=== PATIENT | male | born 1980 | race African-American/Black ===

== ENCOUNTER 2017-01-24 01:48 | Inpatient (IN) | payer OTHER ==
--- NOTE | ~2017-01-24 | CO ---
Unit #: [id number] #: [id number] Patient: CONI SOLO [id number] [address] [place], [place] [address] [id number] I MR#: [id number] NAME: CONI SOLO ROOM: 217 Age: 36 Sex: M Admission Date: 01/24/2017 : 1980 Attending Physician: Gracie Merchant M.D. Primary Care Physician: Primary Care Physician No Consultation Date: 01/24/2017 CONSULTATION REPORT JOB NOTE: CC: DR. MERCHANT. REASON FOR CONSULTATION 1. Partial small bowel obstruction. 2. Pelvic mass. Thank you very much for asking us to see Mr. Solo. HISTORY OF PRESENT ILLNESS He is a 36-year-old black male. He has no previous surgical history or major medical problems. He states he was well until 3 to 5 days ago when he developed epigastric and lower abdominal pain with some nausea. He states that he developed diarrhea after this. He then developed some maroon-colored stools. He came into the emergency room for evaluation. In the emergency room, he has had a CT scan performed, which revealed thickening of the distal ileum with an adjacent 3 to 4 cm pelvic mass. He also had multiple liver lesions and lytic lesion to the pelvic bones are suspicious for metastatic disease. He was admitted for further evaluation and treatment. He states he may have lost a small amount of weight, but not very much. He denies any previous GI bleeding. He denies any or pulmonary symptoms. PAST MEDICAL HISTORY Unremarkable. HOME MEDICATIONS None. SOCIAL HISTORY Positive for tobacco. No alcohol use. FAMILY HISTORY Noncontributory. PAST SURGICAL HISTORY None. REVIEW OF SYSTEMS Negative except for above. IMMUNIZATION STATUS Unknown. PHYSICAL EXAMINATION GENERAL: Well-developed, well-nourished, black male, in no apparent Unit #: [id number] #: [id number] Patient: CONI SOLO distress. VITAL SIGNS: Afebrile, vital signs stable. NECK: Supple. No thyromegaly or adenopathy. BACK: No CVA or spinous tenderness. NECK: Sclerae not icteric. Extraocular movements are intact. ABDOMEN: The patient's abdomen is tender in the epigastric area and lower abdomen with some guarding. It is nondistended. There is no rebound, peritoneal signs, or masses palpable. EXTREMITIES: No calf tenderness. No erythema. DIAGNOSTIC STUDIES LABORATORY RESULTS: Revealed the patient to have normal liver function studies and normal electrolytes. His alkaline phosphatase is slightly elevated at 211. His PT and PTT are normal. His white count is 8.5, hemoglobin 13.3, hematocrit 41.1, MCV is slightly low at 75.5, platelets 272. The patient's CEA level is pending at this time. IMPRESSION A 36-year-old black male with mucosal thickening of the terminal ileum, some degree of partial small bowel obstruction, but currently has no nausea or vomiting and adjacent mass, multiple liver lesions and lytic lesions in the pelvis. It was suspicious for lymphoma per the radiologist. He has been seen by Hematology/Oncology who has recommended a biopsy of one of his liver lesions. We have explained to the patient all of the above imaging findings. We have explained that he may need operative intervention. We will follow the patient with you. At this point in time, since he does not have nausea or vomiting, we will hold on a nasogastric tube. If he develops any nausea or vomiting, he may need that placed. All of these have been fully explained to the patient. Dictated by... Delon Holley/anuja TD: 01/25/2017 03:33 JOB #: [id number] CC: Leland Thomas M.D. [facility] CONSULTATION REPORT Page 1 of 1 X Sean Swan MD X CONSULTATION REPORT
--- NOTE | ~2017-01-24 | CT55 ---
[facility] A Service of [facility] RADIOLOGY TEXT RESULTS PATIENT: CONI PRETTY LOCATION: [facility] : 76 UNIT #: [id number] AGE: [address]: Gracie Merchant MD SEX: M ORDER DR: [id number] [place] [address] [facility]. [place], [place] [address] [id number] I MR#: [id number] Acc #: [id number] NAME: CONI PRETTY : 1980 SEX: M STUDY DATE/TIME: 01/24/2017 13:16 UNIT: C2A ROOM: 217 STUDY DESCRIPTION: CT Chest W Con Attending Physician: Gracie Merchant M.D. Ordering Physician: Leland Thomas M.D. Primary Care Physician: No Primary Care Physician MEDICAL IMAGING REPORT This report is preliminary unless electronic signature is present EXAM CT chest. INDICATION Lymphadenopathy. Liver mass. Observation for metastatic disease. TECHNIQUE CT of the chest utilizing 70 mL Isovue-370 IV contrast. Coronal and sagittal reconstructions were obtained. This CT exam was performed with one or more of the following radiation dose reduction techniques: automatic exposure control, adjustment of mA and/or kV according to patient size, and iterative reconstruction. COMPARISON CT abdomen and pelvis dated 01/24/2017. FINDINGS No pathologically enlarged mediastinal or hilar lymph nodes. No axillary lymphadenopathy. There is a borderline enlarged right axillary lymph node measuring 1.0 cm on the left and on the right. There is background emphysema. Lungs are hyperinflated suggesting a component of obstructive lung disease. Central airways are patent. No focal consolidation. No acute osseous abnormalities are identified. IMPRESSION Borderline enlargement of supraclavicular lymph nodes, otherwise, no evidence of metastatic disease in the chest. These lymph nodes can be followed. [facility] A Service [facility] RADIOLOGY TEXT RESULTS PATIENT: CONI PRETTY LOCATION: [facility] : [birth year] UNIT #: [id number] AGE: [address]: Gracie Merchant MD SEX: M ORDER DR: Dictated by... Harshad Sheets M.D. THIS IS AN ELECTRONICALLY VERIFIED REPORT Harshad Sheets M.D. at 01/24/2017 5:00 PM RPTyrone/mery TD: 01/24/2017 16:04 JOB #: [id number] MEDICAL IMAGING REPORT Page 1 of 1 COPY
--- NOTE | ~2017-01-24 | CT2 ---
[facility] A Service of [facility] RADIOLOGY TEXT RESULTS PATIENT: CONI PRETTY LOCATION: C2A 217-01 : [birth year] UNIT #: [id number] AGE: [address]: Gracie Merchant MD SEX: M ORDER DR: [id number] [facility] [address] [facility]. [place], [place] [address] [id number] I MR#: [id number] Acc #: [id number] NAME: CONI PRETTY : 1980 SEX: M STUDY DATE/TIME: 01/24/2017 5:26 UNIT: C2A ROOM: 217 STUDY DESCRIPTION: CT Abd and Pelv W Cont Attending Physician: Gracie Merchant M.D. Ordering Physician: Iveth Loaiza A.P.R.N. Primary Care Physician: No Primary Care Physician MEDICAL IMAGING REPORT This report is preliminary unless electronic signature is present EXAM Abdomen and pelvis CT with contrast. HISTORY Generalized diffuse abdominal pain with blood in the stool for the past 2 days. TECHNIQUE Axial images were obtained with intravenous contrast. 100 mL of Isovue was used. This CT exam was performed with one or more of the following radiation dose reduction techniques: automatic exposure control, adjustment of mA and/or kV according to patient size, and iterative reconstruction. FINDINGS Distended small bowel loops are seen consistent with a mechanical obstruction. There is a segment of bowel, probably distal ileum, in the right lower quadrant that appears thickened with abnormal enhancement and there is an ill-defined low density mass with rim enhancement in the mid pelvis, just above the bladder measuring approximately 3-4 cm in diameter. Bilateral inguinal lymph nodes are seen that are abnormally prominent. There is a dominant mesenteric lymph node measuring 17 x 23 mm and there are smaller lymph nodes in the mesentery that are also abnormal. Retroperitoneal adenopathy is seen and there are multiple subtle low-density lesions seen throughout the liver. Finding suspicious for a GI malignancy with metastatic disease to the liver. There is also a soft tissue nodule in subcutaneous fat in the right posterolateral pelvis measuring approximately 1 x 1.5 cm. In addition to the soft tissue lesions, there are multiple low-density lytic lesions seen in the iliac bones suspicious for skeletal metastasis. No definite metastatic lesions are seen in the lumbar vertebrae. [facility] A Service of [facility] RADIOLOGY TEXT RESULTS PATIENT: CONI PRETTY LOCATION: [facility] 217-01 : [birth year] UNIT #: [id number] AGE: [address]: Gracie Merchant MD SEX: M ORDER DR: IMPRESSION Marked mucosal thickening of the terminal ileum with an adjacent ill-defined pelvic mass measuring about 3-4 cm in diameter. This is accompanied by widespread adenopathy as described above, as well as low density lesions throughout the liver and lytic lesions in the pelvic bones. Finding suspicious for a GI malignancy with widespread metastatic disease. Lymphoma should also be considered in the differential diagnosis. Distended small bowel loops are seen proximal to the terminal ileum compatible with a mechanical obstruction. Dictated by... Damián Rivas M.D. THIS IS AN ELECTRONICALLY VERIFIED REPORT Daimán Rivas M.D. at 01/25/2017 10:29 AM NICHELLE/mery TD: 01/24/2017 09:30 JOB #: [id number] MEDICAL IMAGING REPORT Page 1 of 1 COPY
--- NOTE | ~2017-01-24 | OR ---
Unit #: [id number] #: [id number] Patient: CONI PRETTY [id number] [address] [address] [id number] I MR#: [id number] NAME: CONI PRETTY ROOM: 474 Date of Procedure: 01/25/2017 Admission Date: 01/24/2017 Surgeon: Sean Swan M.D. : 1980 Attending Physician: Gracie Merchant M.D. OPERATIVE REPORT PREOPERATIVE DIAGNOSES 1. Rectal bleeding. 2. Abdominal pain. 3. Abnormal CT scan. POSTOPERATIVE DIAGNOSES 1. Rectal bleeding. 2. Abdominal pain. 3. Abnormal CT scan. PROCEDURES PERFORMED 1. Esophagogastroduodenoscopy. 2. Biopsy of antrum for Helicobacter pylori testing. 3. Colonoscopy to terminal ileum. 4. Multiple biopsies of cecal neoplasm and abnormal mucosa of terminal ileum. ANESTHESIA Monitored anesthesia care. FINDINGS The patient had normal upper endoscopy. On colonoscopy, the patient was found to have neoplasm at the entrance of the cecum as well as some mucosal abnormality of the terminal ileum. SPECIMENS Sent to pathology. COMPLICATIONS None apparent. CONDITION The patient tolerated the procedure well. INDICATIONS FOR PROCEDURE The patient is a 36-year-old black male, who presented to the emergency room with rectal bleeding. He had abdominal pain as well. A CT scan revealed thickening of the terminal ileum and adjacent 3 to 4 cm neoplasm as well as evidence of metastatic disease of the liver, enlarged nodes in the abdomen and lytic lesions of the pelvic bones. He presents at this time for evaluation by upper as well as lower endoscopy. Unit #: [id number] #: [id number] Patient: CONI PRETTY DESCRIPTION OF PROCEDURE After obtaining informed consent, the patient was brought to the endoscopy suite and after adequate monitored anesthesia care, had the endoscope placed through the mouth into the upper esophagus under direct vision. It was advanced to the second portion of the duodenum without difficulty with the lumen always in view. The duodenum was normal as was the duodenal bulb. The pylorus opened normally. There was some mild distal gastritis present and a biopsy was obtained for Helicobacter pylori testing. On retroflexion back to the GE junction, the patient was found to have no abnormalities in the proximal third, middle third, or incisura. On pulling back above the GE junction, there was no stenosis, stricture, or neoplasm seen. The remaining portion of the esophagus was within normal limits. Laryngeal structures were grossly normal as viewed from above. At this point in time, the colonoscope was placed through the anus and slowly advanced to the level of the cecum without difficulty with the lumen always in view. At the entrance of the cecum, there was a neoplasm present, though we were able to pass through into the terminal ileum. The terminal ileum initially at its most distal aspect had a normal-appearing mucosa, but a little farther upstream, there was mucosal abnormality seen. Multiple biopsies were obtained. On pulling back through the ileocecal valve into the area of the entrance of the cecum, there was a large neoplasm present. Multiple biopsies were obtained. There was good hemostasis. On pulling back from this area, the ascending colon was normal as was the hepatic flexure, transverse colon, splenic flexure, descending colon, sigmoid colon, and rectum. On retroflexing in the rectum to the anorectal junction, the patient was found to have no abnormality seen. The scope was removed without difficulty. The patient tolerated the procedure well and went from the endoscopy suite to the recovery area in stable condition. RECOMMENDATIONS Clear liquid diet after awake. We discussed all with Dr. Thomas of Oncology and he will speak with the patient later regarding the treatment plan. Dictated by... Delon Holley/anuja TD: 01/26/2017 05:35 JOB #: [id number] [facility] Leland Thomas M.D. OPERATIVE REPORT Page 1 of 1 X Sean Swan MD X PROCEDURE OPERATIVE NOTE
--- NOTE | ~2017-01-24 | DS ---
Unit #: [id number] #: [id number] Patient: CONI PRETTY [id number] [facility] [address] [facility]. [place], [place] [address] [id number] I MR#: [id number] NAME: CONI PRETTY ROOM: 474 Age: 36 Sex: M Admission Date: 01/24/2017 : 1980 Discharge Date: Attending Physician: Gracie Merchant M.D. Primary Care Physician: No Primary Care Physician DISCHARGE SUMMARY DIAGNOSIS ON ADMISSION Abdominal pain, pelvic mass with metastatic disease. 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 CONSULTATION 1. Dr. Thomas - Oncology consultation. 2. Dr. Swan - Surgical consultation. LABS AND PROCEDURES DONE The patient had full colonoscopy done which revealed a cecal mass and with mucosal abnormality of terminal ileum. The patient's creatinine is 0.8, sodium 135, potassium is 4.2. WBC is 9.3, hemoglobin is 10.9, platelet count is 243. Blood culture did not reveal any growth so far. CT scan of abdomen and pelvis revealed marked mucosal thickening of terminal ileum with an adjacent ill-defined pelvic mass measuring 3-4 cm and with liver lesions and pelvic bone lesions. CT scan of chest revealed borderline enlargement of supraclavicular lymph nodes, otherwise no evidence of metastatic disease. HOSPITAL COURSE 36-year-old male was admitted to [facility] with abdominal pain. Details are as per admission H and P. The patient was seen by oncology in consultation. The patient underwent a colonoscopy with findings as above. The patient's biopsy is pending. Discussed with Dr. Thomas who believed that patient could have large cell lymphoma. He has advised that patient can be discharged home and follow with him on an outpatient basis next week to discuss the results of biopsy and further management. Today, patient is comfortable. MEDICATIONS Medications on discharge: 1. Duragesic patch 12 mcg topically q.72 hours. Unit #: [id number] #: [id number] Patient: CONI PRETTY 2. Dilaudid 4 mg p.o. q.6 hours p.r.n. Both prescriptions were written by Dr. Thomas. FOLLOWUP The patient is advised to follow up with Dr. Thomas as recommended. The patient was encouraged to quit smoking. The plan was discussed in detail with patient who showed complete understanding. The plan was also discussed with Dr. Thomas. The patient seems in good spirits today. Dictated by... Delon Erwin TD: 01/26/2017 11:35 JOB #: [id number] DISCHARGE SUMMARY Page 1 of 1 X Gracie Merchant MD X DISCHARGE SUMMARY
--- NOTE | ~2017-01-24 | HP ---
Unit #: [id number] #: [id number] Patient: CONI PRETTY [id number] [facility] [address]. [place], [place] [address] [id number] I MR#: [id number] NAME: CONI PRETTY ROOM: 78229 Age: 36 Sex: M Admission Date: 01/24/2017 : 1980 Attending Physician: Gracie Merchant M.D. Primary Care Physician: No Primary Care Physician HISTORY AND PHYSICAL HISTORY OF PRESENT ILLNESS A 36-year-old male presented to [facility] with rectal bleeding. As per patient, he was in usual state of health when around five days ago he developed some lower abdominal pain which was associated with nausea and vomiting. The patient stated that the pain was sharp, nonradiating, [id number], and relieved with medication. Patient stated last night he passed some blood in his stools and therefore, he came to the emergency room. In the emergency room, patient had a CT scan of abdomen done which revealed extensive disease there. The patient had distal ileum thickening and had some spread of some liver lesions and pelvic bone lesions. Therefore, it was decided to admit patient in the hospital. Patient states that he has lost some weight over last couple of years but he is not specific about that. He denies any loss of appetite. There is no history of chest pain, tightness, heaviness. There is no history of headache or visual problems. There is no history of blood in urine. Patient states that overall he is in great health. Rest of the review of systems is negative. PAST MEDICAL HISTORY None. HOME MEDICATIONS None, as per patient. SOCIAL HISTORY Patient smokes one pack of cigarettes for past many years. He denies drinking. FAMILY HISTORY Patient denies any family history of cancer. PAST SURGICAL HISTORY None. PHYSICAL EXAMINATION GENERAL: Patient was lying comfortably in bed, not in any obvious acute distress. VITAL SIGNS: Reveal temperature of 98.2, pulse 75 per minute, respiratory rate is 18 per minute, blood pressure is 115/75. HEENT: Revealed no conjunctival congestion. Sclerae is nonicteric. NECK: Supple. Trachea is central. RESPIRATORY: Revealed decreased breath sounds bilaterally. There are no wheezes or crackles. HEART: Regular rate and rhythm. S1, S2. Unit #: [id number] #: [id number] Patient: CONI PRETTY ABDOMEN: Soft. There is slight mid abdominal tenderness present. No rebound tenderness, rigidity, or guarding. The patient has just received pain medicine. NEUROLOGIC: Strength is 5/5 bilaterally. PSYCHIATRIC: The patient is alert to person, place, and time. SKIN: Warm and dry. DIAGNOSTIC STUDIES LABORATORY: Patient's creatinine is 1, sodium 136, potassium 3.7. AST and ALT are within normal limits. Lipase was 17. WBC 8.5, hemoglobin 13.3, platelet count 272,000. Urinalysis revealed 25-50 RBCs. IMAGING: Patient had CT scan of abdomen and pelvis done which revealed marked mucosal thickening of terminal ileum and with a mass around 3 to 4 cm and with widespread low densities lesions in liver and bone lytic lesions in pelvic bones. The distal bowel loops were dilated as per preliminary report. ASSESSMENT AND PLAN A 36-year-old male with no past medical history, but presented with abdominal pain. 1. Pelvic mass with probable metastatic lesions in liver and pelvic bones. I have requested oncology to see patient in consultation. I have started patient on morphine for pain. 2. Dilated small bowel loops and pelvic mass. I have also consulted surgical surgery. 3. We will give patient gastrointestinal prophylaxis. 4. Tobacco abuse: The patient was encouraged to quit smoking. The plan was discussed in detail with patient and family and they showed complete understanding. Dictated by Delon Erwin TD: 01/24/2017 09:20 JOB #: [id number] HISTORY AND PHYSICAL Page 1 of 1 X Gracie Merchant MD X HISTORY AND PHYSICAL
--- NOTE | ~2017-01-24 | XA231 ---
[facility] A Service of [facility] RADIOLOGY TEXT RESULTS PATIENT: CONI SOLO LOCATION: C2A 217-01 : [birth year] UNIT #: [id number] AGE: [address]: Gracie Merchant MD SEX: M ORDER DR: [id number] [address] [address] [id number] I MR#: [id number] Acc #: [id number] NAME: CONI SOLO : 1980 SEX: M STUDY DATE/TIME: 01/24/2017 13:49 UNIT: C2A ROOM: [facility] STUDY DESCRIPTION: XA Consult Attending Physician: Gracie Merchant M.D. Ordering Physician: Leland Thomas M.D. Primary Care Physician: No Primary Care Physician MEDICAL IMAGING REPORT This report is preliminary unless electronic signature is present CONSULT EXAM Ultrasound of the right gluteal region. INDICATION Mr. Solo is a 36-year man who was admitted to the hospital on January 24, 2017, with complaints of abdominal pain. He appeared to have a colonic mass as well as evidence of metastatic disease to the bones and, potentially, also to the liver. Biopsy of the liver lesions was requested; however, they were extremely difficult to see, due to small size and timing of the contrast bolus. He also underwent a CT scan of the chest that did not show any further potential targets for biopsy. TECHNIQUE Risks, benefits, and alternatives to the procedure were explained to the patient, and signed, informed consent was obtained. Initially, ultrasound of the right gluteal region was performed and demonstrated small hypoechoic nodule that was felt to be indeterminate and of limited utility for biopsy. Subsequently, I performed an ultrasound of the liver and did not see any of the lesions previously identified on the abdominal or chest CT. I did suggest a potential biopsy of the patient's right iliac bone, but after discussion with Dr. Thomas and the patient, this does not proceed. The procedure was subsequently terminated. IMPRESSION 1. The patient's potential liver lesions are extremely difficult to see with both CT and ultrasound. 2. The patient does have a hypoechoic lesion, which is indeterminate, seen in the right gluteal region, but it is felt to be a poor target for biopsy. [facility] A Service of [facility] & [facility] RADIOLOGY TEXT RESULTS PATIENT: CONI SOLO LOCATION: [facility] 217-01 : [birth year] UNIT #: [id number] AGE: [address]: Gracie Merchant MD SEX: M ORDER DR: Dictated by... Arin Biswas M.D. THIS IS AN ELECTRONICALLY VERIFIED REPORT Arin Biswas M.D. at 01/25/2017 4:41 PM MARILIN/henny TD: 01/25/2017 11:14 JOB #: [id number] MEDICAL IMAGING REPORT Page 1 of 1 COPY
--- NOTE | ~2017-01-24 | CO ---
Unit #: [id number] #: [id number] Patient: RAZ SOLO [id number] [address] [place], [place] [address] [id number] MR#: [id number] NAME: RAZ SOLO ROOM: 217 Age: 36 Sex: M Admission Date: 01/24/2017 : 1980 Attending Physician: Gracie Merchant M.D. Consultation Date: 01/24/2017 CONSULTATION REPORT REASON FOR CONSULTATION Liver lesions and bone lesions suggestive of a GI malignancy. HISTORY Mr. Raz Solo is a 36-year-old with no significant past medical history, who over the past week has been having severe pain in his right lower quadrant of the abdomen, which worsened to a point where he presented to the emergency room yesterday and has since been admitted. He has also noticed loose stools with old blood in the last two days. On admission, CT scan of the abdomen and pelvis shows a mass in the ileocecal region with retroperitoneal lymphadenopathy, liver lesions and bone lesions all concerning for malignancy. He tells me had a watery bowel movement earlier today with some dark blood. He has had some nausea, but no vomiting. The abdominal pain has been severe. He has had some other episodes with mild discomfort and a tendency in the past year to have a bowel movement as soon as he has a meal. He has lost weight, but no significant weight loss in the last 3-6 months. However, over the past five years or so, he has lost about 100 pounds in weight. He has had some fever at home with temperature of 101 and chills with sweats. No cough with expectoration, dysuria or urinary frequency. PAST MEDICAL HISTORY History of an ankle ulcer requiring debridement in the past. PAST SURGICAL HISTORY Foot debridement, but no other significant surgery. FAMILY HISTORY No history of cancer or polyps. His grandmother did have breast cancer in her 80s. SOCIAL HISTORY Smokes a pack and a half a day. Occasionally smokes marijuana. He is and lives with and has two children aged 13 and 18. REVIEW OF SYSTEMS Fourteen point review of systems was taken: CONSTITUTIONAL: As discussed. EYES: Negative. EARS, NOSE, MOUTH, AND THROAT: Negative. CARDIOVASCULAR: No chest pain or palpitation. RESPIRATORY: Negative. GASTROINTESTINAL: As discussed. Unit #: [id number] #: [id number] Patient: RAZ SOLO GENITOURINARY: Negative. NEUROLOGIC: Negative. ALLERGIC AND LYMPHATIC: Negative. SKIN: Negative. PSYCHIATRIC: Negative. LYMPHATIC: Negative. PHYSICAL EXAMINATION GENERAL: This is a pleasant middle-aged man, who is in moderate distress. VITAL SIGNS: Temperature is 98.6, pulse is 71, respirations 18, blood pressure 130/73 and weight 177 pounds. HEENT: His pupils are equal and reactive well to light. No pallor or icterus. Mucous membranes are moist. NECK: Without adenopathy, JVD, or thyromegaly. CARDIOVASCULAR: First and second heart sounds are heard and regular. There are no murmurs, gallops or rubs. LUNGS: Chest expansion is symmetric bilaterally with normal breath sounds. ABDOMEN: Tender, nondistended. Bowel sounds are present. No definite masses felt. EXTREMITIES: Warm with good pulses. No edema, cyanosis or clubbing. NEUROLOGIC: He is awake, alert and oriented x3 without any focal findings. SKIN: Negative. LYMPHATIC: Negative. DIAGNOSTIC STUDIES LABORATORY RESULTS: White count is 8.5, hemoglobin is 13.3, MCV 75.5, platelet count is 272,000. Basic metabolic panel shows a BUN of 15, creatinine is 1. LFTs show an albumin of 3.4, alkaline phosphatase is 211. Pro-time is 11.7, INR 1.1, PTT is 29.5. DIAGNOSTIC RESULTS: CT scan of the abdomen and pelvis was personally reviewed by me and findings were discussed with the patient. There was an ill-defined low-density mass in the ileocecal area with mesenteric lymphadenopathy as well as multiple subtle low attenuation lesions in the liver as well as multiple low density lytic lesions in the iliac bones. ASSESSMENT/PLANS Mr. Jon Solo is a 36-year-old with a history of iron deficient anemia and a foot abscesses admitted with severe abdominal pain and rectal bleeding along with a history of diarrhea. CT scan of the abdomen and pelvis is concerning for a GI malignancy with an ileocecal mass, retroperitoneal lymphadenopathy and multiple lesions in the liver and iliac bone concerning for metastatic malignancy. I had an extensive discussion with the patient and family members at bedside. He may have a partial small bowel obstruction and [facility] have been consulted. RECOMMENDATIONS 1. CEA level. 2. CT-guided liver biopsy. Plans discussed with Dr. Biswas of Radiology. 3. Blood cultures in view of fever, although his white count is normal. Thank you for allowing me to participate in his care. Dictated by... Unit #: [id number] #: [id number] Patient: RAZ SOLO Delon Andrade/anuja TD: 01/25/2017 05:22 JOB #: [id number] CONSULTATION REPORT Page 1 of 1 X Leland Thomas MD X CONSULTATION REPORT
[~2017-01-24 01:48] MED LIST: ACETAMINOPHEN PO; ALAVERT10 MG PO; BACTRIM DS TABL1 TA1 PO; BACTROBAN15 GM TOP; COLACE PO; DICLOFENAC PO; FERRO-TIME325 MG PO; LORTAB 5/500 TA1 TA1 PO; MAGIC MOUTHWASH; MILK OF MAGNESIA PO; NILSTAT PO; NO MEDICATIONS; SPECTAZOLE15 GM TP; VICODIN PO; ZOVIRAX PO; ZOVIRAX400 MG PO
[2017-01-24 02:34] LABS: BASOPHIL# 0.1 X10e3 (0-0.3); BASOPHIL% 0.6 % (0-2.5); DIFF IND NO; EOSINOPHIL# 0.1 X10e3 (0-0.7); HEMATOCRIT 41.1 % (38.0-50.0); HEMOGLOBIN 13.3 gm/dL (13.0-16.0); LYMPHOCYTE# 2.6 X10e3 (1.0-3.5); LYMPHOCYTE% 30.3 % (17.0-45.0); MEAN CELL VOLUME 75.5 FL (83-96); MEAN CORPUSCULAR HEMOGLOBIN 24.5 PG (28-34); MEAN CORPUSCULAR HGB CONC 32.4 g/dL (30-36); MEAN PLATELET VOLUME 8.7 FL (6.5-11.5); MONOCYTE# 0.7 X10e3 (0-1.0); MONOCYTE% 7.7 % (3.0-12.0); NEUTROPHIL# 5.1 X10e3 (1.5-7.1); NEUTROPHIL% 60.4 % (40-75); PLATELET COUNT 272 X10e3 (140-420); RED BLOOD COUNT 5.45 X10e (3.90-5.60); RED CELL DISTRIBUTION WIDTH 15.2 % (11.0-15.5); WHITE BLOOD COUNT 8.5 X10e3 (4.0-10.5)
[2017-01-24 02:58] LABS: ALBUMIN SERUM 3.4 g/dL (3.5-5.0); BILIRUBIN, DIRECT 0.1 mg/dL (0.0-0.2); BILIRUBIN,INDIRECT 0.5 mg/dL (0.0-0.9); BILIRUBIN,TOTAL 0.6 mg/dL (0.2-2.0); CALCIUM SERUM 9.2 mg/dL (8.4-10.2); GLOM FILT RATE Estimated 110.2 mL/min (>60); POTASSIUM 3.7 mmol/L (3.5-5.1); PROTEIN TOTAL SERUM 9.4 g/dL (6.0-8.3)
[2017-01-24 03:28] LABS: URINE SOURCE CLEAN CATCH
[2017-01-24 03:34] LABS: URINE APPEARANCE CLEAR; URINE BILIRUBIN NEG (NEG); URINE BLOOD 2+ (NEG); URINE COLOR DK YELLOW; URINE GLUCOSE NEG (NEG); URINE KETONE TRACE (NEG); URINE LEUKOCYTE ESTERASE TRACE (NEG); URINE NITRATE NEG (NEG); URINE PROTEIN 2+ (NEG); URINE SPECIFIC GRAVITY 1.029 (1.003-1.035)
[2017-01-24 03:37] LABS: URBCS1 AUWI 25-50 /[HPF] (0-2); URINE BACTERIA AUWI NEG (NEGATIVE); URINE SQUAMOUS EPITHELIAL CELL NONE SEEN /[HPF]
[2017-01-24 03:52] LABS: INR 1.1; PARTIAL THROMBOPLASTIN TIME 29.5 SECONDS (23.5-31.3); PROTHROMBIN TIME (PATIENT) 11.7 SECONDS (10.0-11.7)
[2017-01-24 03:53] LABS: CULTURE INDICATED? NO
[2017-01-24] MEDS ORDERED: NO MEDICATIONS (11:17)
[2017-01-24 12:42] LABS: IRON SERUM 10 ug/dL (45-182); TOTAL IRON BINDING CAPACITY 223 ug/dL (252-460); TRANSFERRIN 160 mg/dL (180-329); TRANSFERRIN SATURATION 4 % (20-50)
[2017-01-25 06:31] LABS: HEMATOCRIT 33.6 % (38.0-50.0); MEAN CELL VOLUME 74.5 FL (83-96); MEAN CORPUSCULAR HEMOGLOBIN 24.1 PG (28-34); MEAN CORPUSCULAR HGB CONC 32.4 g/dL (30-36); RED BLOOD COUNT 4.51 X10e (3.90-5.60); RED CELL DISTRIBUTION WIDTH 14.9 % (11.0-15.5); WHITE BLOOD COUNT 9.3 X10e3 (4.0-10.5)
[2017-01-25 06:51] LABS: HEMOGLOBIN 10.9 gm/dL (13.0-16.0)
[2017-01-25 07:48] LABS: BUN/CREATININE RATIO 12.5; CALCIUM SERUM 8.6 mg/dL (8.4-10.2); CREATININE SERUM 0.8 mg/dL (0.6-1.4); GLOM FILT RATE Estimated 131.4 mL/min (>60); POTASSIUM 4.2 mmol/L (3.5-5.1)
[2017-01-26] MEDS ORDERED: DURAGESIC1 EAC1 TD (14:36)
[2017-01-26] MEDS ORDERED: DILAUDID2 MG PO (14:36)
[2017-01-31 07:50] LABS: HA AB IGM (HEPPAN) Nonreactive (()); HB CORE AB IGM (HEPPAN) Nonreactive (Nonreactive); HB S AG (HEPPAN) Nonreactive (Nonreactive); HEP C AB (HEPPAN) Nonreactive (Nonreactive)
== END 2017-01-26 15:05 | disposition home or self-care (01) | DRG 841 ==
LOC: CED 01:48 → C2A 06:48 → CEDOF 06:48 → C4C 06:48 → CED 07:00 → CEDOF 07:00 → C2A 09:27 → C4C 01-26 00:03
PROVIDERS: Internal Medicine; Internal Medicine Hematology & Oncology; Nurse Practitioner; Surgery
PROC: 0DB78ZX Excision of Stomach, Pylorus, Via Natural or Artificial Opening Endoscopic, Diagnostic (ICD-10-PCS; principal; 2017-01-25 13:30)
PROC: 0DBH8ZX Excision of Cecum, Via Natural or Artificial Opening Endoscopic, Diagnostic (ICD-10-PCS; 2017-01-25 13:30)
PROC: 0DBB8ZX Excision of Ileum, Via Natural or Artificial Opening Endoscopic, Diagnostic (ICD-10-PCS; 2017-01-25 13:30)
DX: C83.30 Diffuse large B-cell lymphoma, unspecified site (principal); K92.1 Melena; K56.60 Unspecified intestinal obstruction; K63.89 Other specified diseases of intestine; R59.0 Localized enlarged lymph nodes; K76.9 Liver disease, unspecified; F17.210 Nicotine dependence, cigarettes, uncomplicated; M89.9 Disorder of bone, unspecified; Z80.3 Family history of malignant neoplasm of breast
CPT/HCPCS: 36415; 71260; 74177; 76140; 80048; 80074; 80076; 81003; 82232; 82378; 82728; 83540; 83550; 83615; 83690; 85025; 85027; 85610; 85730; 86701; 86702; 87040; 87077; 87806; 88305; 96361; 96374; 96375; 99285; C9113; J1170; J2250; J2270; J2405; J2543; J3010; J3480; J7042; Q9967

== ENCOUNTER → 2017-02-07 | Outpatient (CLI) | payer OTHER ==
[~2017-02-07] MED LIST changes: +DILAUDID2 MG PO; +DURAGESIC1 EAC1 TD
--- NOTE | ~2017-02-07 | MR17 ---
[facility] A Service of [facility] RADIOLOGY TEXT RESULTS PATIENT: JAMESON PRETTY LOCATION: [facility] : 76 UNIT #: [id number] AGE: [address]: Leland Thomas MD SEX: M ORDER DR: [id number] [facility] [address] [place], [place] [address] [id number] O MR#: [id number] Acc #: [id number] NAME: JAMESON PRETTY : 1980 SEX: M STUDY DATE/TIME: 02/07/2017 20:22 UNIT: [facility] ROOM: STUDY DESCRIPTION: MR Brain WWo Contrast Attending Physician: Leland Thomas M.D. Ordering Physician: Leland Thomas M.D. Primary Care Physician: Primary Care Physician No MRI CENTER REPORT This report is preliminary unless electronic signature is present. EXAM Brain MRI with and without contrast HISTORY Lymphoma diagnosed 1 week ago. Evaluate for brain malignancy suspected. TECHNIQUE Multiplanar imaging of the brain was performed with and without contrast. 16 mL of MultiHance was used. FINDINGS Diffusion weighted images are normal with no evidence of abnormal restricted diffusion. No brain masses are seen. Ventricular size is normal and no white matter signal abnormalities are noted. Extraaxial structures are remarkable for diffuse enlargement of the adenoids in the posterior nasopharynx. There is a large enhancing mass at this site that measures 3.4 x 5.9 x 5.2 cm. This tissue was PET avid on the recent PET/CT scan and is consistent with lymphoma. Extraaxial structures are otherwise unremarkable. IMPRESSION Marked diffuse enlargement of the adenoids in the posterior nasopharynx consistent with active lymphoma. This tissue enhances moderately and diffusely with contrast and was PET avid on a recent PET/CT scan. No evidence of intraaxial tumor. Dictated by... Damián Rivas M.D. THIS IS AN ELECTRONICALLY VERIFIED REPORT Damián Rivas M.D. at 02/08/2017 4:08 PM RLF/deyaniras [facility] A Service of [facility] RADIOLOGY TEXT RESULTS PATIENT: JAMESON PRETTY LOCATION: [facility] : 76 UNIT #: [id number] AGE: [address]: Leland Thomas MD SEX: M ORDER DR: TD: 02/08/2017 06:53 JOB #: [id number] MRI CENTER REPORT Page 1 of 1 COPY
== END | disposition home or self-care (01) ==
LOC: CMRI 19:50
DX: C83.39 Diffuse large B-cell lymphoma, extranodal and solid organ sites (principal); J35.2 Hypertrophy of adenoids
CPT/HCPCS: 70553; A9577